=== PATIENT | female | born 1990 ===

== ENCOUNTER → 2017-06-25 | Outpatient (CLI) | payer OTHER | END | disposition home or self-care (01) | LOC: C.LABSPEC 09:54 | PROVIDERS: ATTEND Obstetrics & Gynecology | DX: O30.002 Twin pregnancy, unspecified number of placenta and unspecified number of amniotic sacs, second trimester (principal); Z3A.00 Weeks of gestation of pregnancy not specified ==

== ENCOUNTER → 2017-07-22 | Outpatient (CLI) | payer OTHER | END | disposition home or self-care (01) | LOC: C.LABSPEC 18:01 | PROVIDERS: ATTEND Obstetrics & Gynecology | DX: O30.003 Twin pregnancy, unspecified number of placenta and unspecified number of amniotic sacs, third trimester (principal); Z3A.00 Weeks of gestation of pregnancy not specified ==

== ENCOUNTER 2017-08-18 12:27 | Outpatient (CLI) | payer OTHER ==
[2017-08-18] MEDS ORDERED: BETAMETH SOD PHOS/ACETATE IA 6 MG/ML ONE (12:34)
== END 2017-08-18 12:45 | disposition home or self-care (01) ==
LOC: C.LD 12:27 → C.OPB 12:27
PROVIDERS: ATTEND Obstetrics & Gynecology
DX: O62.9 Abnormality of forces of labor, unspecified (principal); Z3A.00 Weeks of gestation of pregnancy not specified